=== PATIENT | female | born 1995 | race Caucasian/White ===

== ENCOUNTER 2018-02-13 19:30 | Emergency (ER) | payer OTHER ==
[~2018-02-13] VITALS: Ht 154.9 cm; Wt 76.2 kg
[2018-02-13 19:36] VITALS: Ht 154.9 cm; Wt 76.2 kg
[2018-02-14 00:18] VITALS: BP 113/72
== END 2018-02-14 00:18 | disposition home or self-care (01) ==
LOC: ED 19:30
DX: S06.9X9A Unspecified intracranial injury with loss of consciousness of unspecified duration, initial encounter (principal); S16.1XXA Strain of muscle, fascia and tendon at neck level, initial encounter; Z98.890 Other specified postprocedural states; V87.8XXA Person injured in other specified noncollision transport accidents involving motor vehicle (traffic), initial encounter; Y93.55 Activity, bike riding; Y92.413 State road as the place of occurrence of the external cause; Y99.8 Other external cause status